=== PATIENT | male | born 1945 | race Caucasian/White ===

== ENCOUNTER → 2023-12-30 | Day surgery (SDC) | payer MEDICARE ==
[2023-12-30] MEDS: Polymyxin B/Trimethoprim 10 ML Bottle EYELF SCH (12:08)
[2023-12-30] MEDS: Brimonidine 0.2% Ophth Soln 5 ML Bottle EYELF SCH (12:14)
[2023-12-30] MEDS: Phenylephrine 2.5% Ophth Soln 2 ML Bot EYELF SCH (12:18)
[2023-12-30] MEDS: Tropicamide 1% Ophth Soln 3 ML Bottle EYELF SCH (12:24)
[2023-12-30] MEDS: Tetracaine HCl/PF 0.5% 4 ML Bottle EYEBOTH SCH (13:22)
[2023-12-30] MEDS: Lidocaine 1% PF 2 ML SDV INJECT SCH (13:39)
[2023-12-30] MEDS: Pilocarpine 4% Ophth Soln 15 ML Bot EYELF SCH (13:51)
[2023-12-30] MEDS: Cefuroxime 10 MG/ML SYRINGE EYELF SCH (13:51)
== END ==
LOC: JD.SDS 08:28
PROVIDERS: ATTEND Ophthalmology
DX: H25.813 Combined forms of age-related cataract, bilateral (principal); H21.81 Floppy iris syndrome; H21.42 Pupillary membranes, left eye
CPT/HCPCS: 66982; A9270; J0697; J3490; V2632

== ENCOUNTER 2024-01-27 11:22 | Day surgery (SDC) | payer MEDICARE ==
[2024-01-27] MEDS: Polymyxin B/Trimethoprim 10 ML Bottle EYERT SCH (13:25)
[2024-01-27] MEDS: Brimonidine 0.2% Ophth Soln 5 ML Bottle EYERT SCH (13:30)
[2024-01-27] MEDS: Phenylephrine 2.5% Ophth Soln 2 ML Bot EYERT SCH (13:33)
[2024-01-27] MEDS: Tropicamide 1% Ophth Soln 3 ML Bottle EYERT SCH (13:39)
[2024-01-27] MEDS: Tetracaine HCl/PF 0.5% 4 ML Bottle EYEBOTH SCH (14:40)
[2024-01-27] MEDS: Lidocaine 1% PF 2 ML SDV INJECT SCH (15:04)
[2024-01-27] MEDS: Cefuroxime 10 MG/ML SYRINGE EYERT SCH (15:16)
[2024-01-27] MEDS: Pilocarpine 4% Ophth Soln 15 ML Bot EYERT SCH (15:17)
== END 2024-01-27 15:25 ==
LOC: JD.SDS 11:22
PROVIDERS: ATTEND Ophthalmology
DX: H25.811 Combined forms of age-related cataract, right eye (principal); H21.81 Floppy iris syndrome; H21.41 Pupillary membranes, right eye; H52.31 Anisometropia; Z79.899 Other long term (current) drug therapy
CPT/HCPCS: 66982; A9270; J0697; 00142; 99100; J3490; V2632